=== PATIENT | male | born 1945 | race Caucasian/White ===

== ENCOUNTER 2021-01-28 08:48 | Day surgery (SDC) | payer MEDICARE, OTHER ==
[2021-01-28] VITALS (13 sets, daily range): BP systolic 103–144; BP diastolic 49–86
[~2021-01-28] VITALS: Ht 188 cm; Wt 87.5 kg
[2021-01-28] MEDS ORDERED: MIDAZolam 1mg/ml 10ml vial IV ONE (09:20)
[2021-01-28] MEDS ORDERED: normal saline 1000ml 1,000 ML IV SCH (09:20)
[2021-01-28] MEDS ORDERED: fentaNYL/PF 50MCG/1 ML 2ML syringe IV ONE (09:20)
[2021-01-28 10:18] LABS: BASOPHILS # (AUTO) 0.1 X10'3 (0-0.2); BASOPHILS % (AUTO) 0.8 % (0-1); EOSINOPHILS # (AUTO) 0.3 X10'3 (0-0.9); EOSINOPHILS % (AUTO) 4.4 % (0-6); HEMOGLOBIN 13.6 g/dl (14.0-17.9); LYMPHOCYTES # (AUTO) 0.7 X10'3 (1.1-4.8); LYMPHOCYTES % (AUTO) 9.2 % (21-51); MEAN CORPUSCULAR HEMOGLOBIN 33.2 PG (27.0-31.0); MEAN CORPUSCULAR HGB CONC 33.2 g/dL (33.0-36.5); MEAN CORPUSCULAR VOLUME 99.9 FL (78-98); MEAN PLATELET VOLUME 6.8 FL (7.4-10.4); MONOCYTES # (AUTO) 0.7 X10'3 (0-0.9); MONOCYTES % (AUTO) 9.3 % (2-12); NEUTROPHILS # (AUTO) 5.9 X10'3 (1.8-7.7); NEUTROPHILS % (AUTO) 76.3 % (42-75); PLATELET COUNT 429 X10'3 (140-440); RED BLOOD COUNT 4.11 X10'6 (4.70-6.10); RED CELL DISTRIBUTION WIDTH 19.4 % (11.5-14.5); WHITE BLOOD COUNT 7.7 X10'3 (4.5-11.0)
[2021-01-28] MEDS ORDERED: APIX5TAB3 PO (10:36)
[2021-01-28] MEDS ORDERED: BACL10TA PO (10:36)
[2021-01-28] MEDS ORDERED: ROSU40TA PO (10:36)
[2021-01-28] MEDS ORDERED: DIGO125T97 PO (10:36)
[2021-01-28] MEDS ORDERED: HYDR-3964 PO (10:36)
[2021-01-28] MEDS ORDERED: FLEC100T35 PO (10:36)
[2021-01-28] MEDS ORDERED: SERT-433 PO (10:36)
[2021-01-28] MEDS ORDERED: LOP25T PO (10:36)
[2021-01-28] MEDS ORDERED: DILT120C52 PO (10:36)
[2021-01-28] MEDS ORDERED: AZAT100T PO (10:36)
[2021-01-28 10:41] LABS: ALBUMIN 3.8 G/DL (3.4-5.0); ANION GAP 10 (8-16); BLOOD UREA NITROGEN 18 MG/DL (7-18); BUN/CREATININE RATIO 24.7 (5.4-32.0); CALCIUM 9.4 MG/DL (8.5-10.1); CHLORIDE 102 MMOL/L (99-107); CREATININE 0.73 MG/DL (0.60-1.10); GLUCOSE 108 MG/DL (70-104); MAGNESIUM 2.3 MG/DL (1.5-2.4); POTASSIUM 4.5 MMOL/L (3.5-5.1); SODIUM 140 MMOL/L (135-145); TOTAL CARBON DIOXIDE 27.9 MMOL/L (24-32); eGFR > 90 ML/MIN
[2021-01-28 10:59] LABS: ANISOCYTOSIS 2+; PLATELET ESTIMATE NORMAL
[2021-01-28 11:01] LABS: ACANTHOCYTES FEW; ELLIPTOCYTES FEW
== END 2021-01-28 12:15 | disposition home or self-care (01) ==
LOC: SSTAY O 08:48
PROVIDERS: ATTEND Internal Medicine Cardiovascular Disease
DX: I48.19 Other persistent atrial fibrillation (principal); I25.10 Atherosclerotic heart disease of native coronary artery without angina pectoris; F41.9 Anxiety disorder, unspecified; Z95.5 Presence of coronary angioplasty implant and graft; Z79.01 Long term (current) use of anticoagulants; Z79.899 Other long term (current) drug therapy; Z98.890 Other specified postprocedural states; Z87.19 Personal history of other diseases of the digestive system
CPT/HCPCS: 36415; 80048; 83735; 85008; 85025; 85610; 92960; 93005; 94799